=== PATIENT | male | born 1955 | race African-American/Black ===

== ENCOUNTER 2020-07-30 05:32 | Emergency (ER) | payer MEDICARE ==
[~2020-07-30] VITALS: Ht 170.2 cm; Wt 88.0 kg
[2020-07-30 05:40] VITALS: BP 170/96
== END 2020-07-30 10:01 | disposition left against medical advice (07) ==
LOC: ER 05:32
DX: K13.79 Other lesions of oral mucosa (principal); Z53.21 Procedure and treatment not carried out due to patient leaving prior to being seen by health care provider